=== PATIENT | female | born 1975 | race Hispanic/Latino ===

== ENCOUNTER 2024-02-27 01:58 | Observation (INO) | payer BC ==
[~2024-02-27] VITALS: Ht 154.9 cm; Wt 122.7 kg
[2024-02-27 02:25] LABS: BASOPHILS # (AUTO) 0.03 K/uL (0.00-0.20); BASOPHILS % (AUTO) 0.3 % (0.0-5.0); EOSINOPHILS # (AUTO) 0.08 K/uL (0.00-0.70); EOSINOPHILS % (AUTO) 0.7 % (0.0-8.0); HEMATOCRIT 38.1 % (36-48); IMMATURE GRANULOCYTE ABSOLUTE 0.03 K/uL (0-1); LYMPHOCYTES # (AUTO) 3.5 K/uL (1.0-4.8); LYMPHOCYTES % (AUTO) 32.6 % (21.0-51.0); MEAN CORPUSCULAR HEMOGLOBIN 28.9 pg (27.0-33.0); MEAN CORPUSCULAR HGB CONC 34.1 g/dL (32.0-36.0); MEAN CORPUSCULAR VOLUME 84.7 fL (79-99); MONOCYTES # (AUTO) 0.7 K/uL (0.1-1.0); MONOCYTES % (AUTO) 6.4 % (3.0-13.0); NEUTROPHILS # (AUTO) 6.5 K/uL (1.8-7.7); NEUTROPHILS % (AUTO) 59.7 % (40.0-77.0); PLATELET COUNT (AUTO) 329 K/uL (130-400); RED CELL DISTRIBUTION WIDTH 13.2 % (11.0-15.5); WHITE BLOOD COUNT (AUTO) 10.9 K/uL (4.8-10.8)
[2024-02-27] MEDS ORDERED: POTASSIUM CHLORIDE 10% ELIXIR 20 MEQ/15 ML UDCUP PO PRN (03:30)
[2024-02-27] MEDS ORDERED: OXYCODONE/ACETAMIN 5/325MG TAB PO PRN (03:30)
[2024-02-27] MEDS ORDERED: KCL 20 MEQ ERTAB PO PRN (03:30)
[2024-02-27] MEDS ORDERED: MAGNESIUM 2GM PREMIX 50ML 50 ML IV PRN (03:30)
[2024-02-27] MEDS ORDERED: POTASSIUM CHLORIDE 10MEQ/100ML 100 ML IV PRN (03:30)
[2024-02-27] MEDS ORDERED: ZOLPIDEM TARTRATE 5 MG TAB PO PRN (03:30)
[2024-02-27] MEDS ORDERED: LACTULOSE 20 GM/30 ML UDCUP PO PRN (03:30)
[2024-02-27] MEDS ORDERED: NITROGLYCERIN 0.4 MG SL TAB SL PRN (03:30)
[2024-02-27] MEDS ORDERED: ACETAMINOPHEN 325 MG TAB PO PRN ×2 (03:30)
[2024-02-27] MEDS ORDERED: HYDRALAZINE 20MG/ML VIAL IV PRN (03:30)
[2024-02-27] MEDS ORDERED: FAMOTIDINE 20MG VIAL IV PRN (03:30)
[2024-02-27] MEDS ORDERED: GLUCAGON 1MG KIT 1 MG ML IM PRN (03:30)
[2024-02-27] MEDS ORDERED: GUAIFENESIN-DM 200/20 MG 10 ML PO PRN (03:30)
[2024-02-27] MEDS ORDERED: DiphenhydrAMINE HCL 50 MG/ML VIAL IV PRN (03:30)
[2024-02-27] MEDS ORDERED: DEXTROSE 50%-WATER 50 ML DISP.SYRIN IV PRN (03:30)
[2024-02-27] MEDS ORDERED: ONDANSETRON 4MG INJ IV PRN (03:30)
[2024-02-27] MEDS ORDERED: KETOROLAC 15MG/ML VIAL (15MG/ML) IV PRN (03:30)
[2024-02-27] MEDS ORDERED: MAG/ALUM/SIMETH 30 ML UDCUP PO PRN (03:30)
[2024-02-27] MEDS: 0.9%NACL 1000ML 1,000 ML IV SCH (03:52)
[2024-02-27 04:10] VITALS: BP 159/88; PULSE 70; RESP 17; O2SAT 99
[2024-02-27 04:15] LABS: ALBUMIN 3.7 g/dL (3.5-5.0); BILIRUBIN,TOTAL 0.3 mg/dL (0.2-1.0); CREATININE 0.9 mg/dL (0.5-1.0); TOTAL PROTEIN, SERUM 7.7 g/dL (6.0-8.3)
[2024-02-27] MEDS: ZOSYN 3.375GM+NS 50ML 50 ML IV SCH (04:26)
[2024-02-27] MEDS: ACETAMINOPHEN 325 MG TAB PO PRN (04:54)
[2024-02-27 05:25] LABS: APPEARANCE,URINE CLOUDY (CLEAR); BILIRUBIN,URINE NEGATIVE (NEGATIVE); COLOR,URINE RED (YELLOW); GLUCOSE, URINE (UA) NEGATIVE (NEGATIVE); KETONES,URINE 5 mg/dL (NEGATIVE); LEUKOCYTE ESTERASE ,URINE SMALL Leu/uL (NEGATIVE); NITRATE,URINE POSITIVE (NEGATIVE); OCCULT BLOOD,URINE LARGE (NEGATIVE); PROTEIN,URINE >=300 mg/dL (NEGATIVE)
[2024-02-27 05:41] LABS: RBC,URINE TNTC /HPF (0-1)
[2024-02-27 05:43] LABS: BACTERIA,URINE Moderate /HPF (None Seen); SQUAMOUS EPITHELIAL CELL,UR Rare /HPF (0-2)
[2024-02-27] MEDS: INSULIN HUMULIN R 100 UNIT/ML 3ML SQ SCH (06:13)
[2024-02-27 07:57] VITALS: BP 133/67; PULSE 77; RESP 16
[2024-02-27] MEDS: FAMOTIDINE 20MG VIAL IV SCH (09:02)
[2024-02-27 12:10] VITALS: BP 142/80; PULSE 77; RESP 16
[2024-02-27] MEDS ORDERED: TRANEXAMIC ACID 1000MG/10ML IV ONE (13:30)
[2024-02-27] MEDS: [UNRECOGNIZED DRUG - OTHER] IV ONE (14:03)
[2024-02-27] MEDS: TRANEXAMIC ACID IV ONE (14:03)
[2024-02-27] MEDS: MEDROXYPROGESTERONE ACET 5 MG TAB PO SCH (14:05)
[2024-02-27 15:14] VITALS: O2SAT 97
== END 2024-02-27 16:30 | disposition home or self-care (01) ==
LOC: EDH 01:58 → EDHIP 03:27 → 3BH 04:16
PROVIDERS: ADMIT Hospitalist; ATTEND Hospitalist
DX: D25.9 Leiomyoma of uterus, unspecified (principal); E66.9 Obesity, unspecified; N93.9 Abnormal uterine and vaginal bleeding, unspecified; Z87.891 Personal history of nicotine dependence; Z68.43 Body mass index [BMI] 50.0-59.9, adult; Z79.899 Other long term (current) drug therapy; Z98.890 Other specified postprocedural states
CPT/HCPCS: 36415; 76700; 76857; 80053; 81001; 81025; 82948; 83880; 84145; 85025; 87086; 96365; 96366; 96367; 96375; G0378; J2543; J3490